=== PATIENT | male | born 1970 | race Caucasian/White ===

== ENCOUNTER → 2016-05-08 | Outpatient (CLI) | payer OTHER | LOC: MHCPAIN 07:57 | DX: G89.29 Other chronic pain (principal); M54.2 Cervicalgia | CPT/HCPCS: G0463 ==

== ENCOUNTER → 2016-06-01 | Outpatient (CLI) | payer OTHER | LOC: COL.RAD 07:30 | DX: M50.321 Other cervical disc degeneration at C4-C5 level (principal); M79.1 Myalgia; M79.2 Neuralgia and neuritis, unspecified ==

== ENCOUNTER → 2016-06-15 | Outpatient (CLI) | payer BC, OTHER | LOC: MHCPAIN 07:21 | DX: G89.29 Other chronic pain (principal); M50.90 Cervical disc disorder, unspecified, unspecified cervical region; M25.519 Pain in unspecified shoulder | CPT/HCPCS: G0463 ==